=== PATIENT | male | born 1950 | race Caucasian/White ===

== ENCOUNTER 2018-07-12 14:28 | Outpatient (CLI) | payer MEDICARE ==
--- NOTE | 2018-07-12 15:17 | RAD ---
TWO VIEW THORACOLUMBAR SPINE SCOLIOSIS SERIES: INDICATION: Back pain, spinal curvature. FINDINGS: There is no significant abnormal curvature of the thoracolumbar spine. There is a minimal right conv exity curvature of the lumbar spine approximately 5 degrees. No vertebral anomalies. IMPRESSION: No significant scoliosis of the thoracolumbar spine. POS: [facility]
== END 2018-07-12 14:29 | disposition home or self-care (01) ==
LOC: BICRAD 14:28
PROVIDERS: ATTEND Physical Medicine & Rehabilitation
DX: M43.9 Deforming dorsopathy, unspecified (principal); M54.9 Dorsalgia, unspecified
CPT/HCPCS: 72081